=== PATIENT | male | born 1990 | race Caucasian/White ===

== ENCOUNTER 2018-01-01 07:45 | Emergency (ER) | payer SELFPAY ==
[~2018-01-01] VITALS: Ht 175.3 cm; Wt 68.0 kg
--- NOTE | 2018-01-01 07:51 | NUR ---
PT BIB [facility] FOR PREBOOK Addendum: 01/01/18 at 0751 by CINTHYA RAO [facility]
[2018-01-01 07:55] VITALS: BP 132/88
--- NOTE | 2018-01-01 07:55 | NUR ---
PATIENT BIB [facility] FOR DRIVING UNDER THE INFLUENCE ETOH. PATIETN DENIES PAIN; DENIES PAST MEDICAL HISTORY. DENIES N/V/D; SKIN IS PINK/WARM/DRY; AAOX4 WITH EVEN AND STEADY GAIT; LUNGS CLEAR BL; HR EVEN AND REGULAR; PT DENIES ANY FEVER, CP, SOB, OR COUGH AT THIS TIME; PATIENT STATES PAIN OF 0/10 AT THIS TIME; VSS; PATIENT POSITIONED FOR COMFORT; SITTING UP IN CHAIR. ER MD MADE AWARE OF PT STATUS.
[2018-01-01 08:25] VITALS: BP 132/88
--- NOTE | 2018-01-01 08:25 | NUR ---
PATIENT RAO [facility]SHALL [facility]. PATIENT EXAMINED BY DR. ENRIQUEZ. PATIENT MEDICALLY CLEARED AND RELEASED IN CUSTODY IN STABLE CONDITION. ORIGINAL PRE-BOOK FORM GIVEN TO OFFICER Odell BETANCOURT.
== END 2018-01-01 08:25 ==
LOC: MED 07:45
DX: Z02.89 Encounter for other administrative examinations (principal); F10.129 Alcohol abuse with intoxication, unspecified; V49.49XA Driver injured in collision with other motor vehicles in traffic accident, initial encounter; Y93.89 Activity, other specified; Y92.413 State road as the place of occurrence of the external cause; Y99.8 Other external cause status
CPT/HCPCS: 99283